=== PATIENT | male | born 1965 | race Caucasian/White ===

== ENCOUNTER 2017-01-31 21:47 | Emergency (ER) | payer OTHER ==
[~2017-01-31] VITALS: Ht 188 cm; Wt 99.8 kg
[2017-01-31 21:47] VITALS: BP_SYST 147
[2017-01-31 22:15] VITALS: BP_SYST 147
== END 2017-01-31 22:15 ==
LOC: SED 21:47
DX: Z02.89 Encounter for other administrative examinations (principal)